=== PATIENT | female | born 1950 | race Two or more races ===

== ENCOUNTER → 2021-10-18 | Outpatient (CLI) | payer MEDICARE, OTHER ==
--- NOTE | 2021-10-18 17:15 | RAD ---
CT brain without contrast. HISTORY: Obtunded 48 hours, I was read a report from a previous outside CT. CT scan of brain was done without contrast. Sinuses are clear. 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 There is no shift of the midline . There is a small amount of intraventricular hemorrhage in the occipital horn of the frontal ventric le on the right side which could be residual from the old hemorrhage or a small focal new hemorrhage . There is a decreased density in the thalamus and posterior basal ganglia on the left consistent wit h an evolving CVA. Occipital and temporal horn of the lateral ventricle on the left are dilated. Ther e is slight density probably related to residual hemorrhage in the posterior parietal occipital regio n on the left. No new hemorrhage in that region is noted. There is diffuse decreased density in the w dustin matter of the posterior frontal parietal region on the left probably related to evolving insult from CVA and hemorrhage. Ventricular dilatation is probably related to developing encephalomalacia. IMPRESSION: 1. Decreased density left thalamus and basal ganglia consistent with evolving CVA. 2. Small amount of residual hemorrhage in the occipital horn lateral ventricle on the right possibly related to residual hemorrhage or possibly small new hemorrhage. 3. Residuals focus of increased density to the left of midline in the posterior parietal-occipital re gion probably evolving hemorrhage, no definite new hemorrhage in that location. 4. Dilated occipital and temporal horns of the lateral ventricle on the left probably related to deve loping encephalomalacia and atrophy. 5. There is no evidence of shift of the midline at this time. PQRS Compliance Statement: One or more of the following individualized dose reduction techniques were utilized for this examinat ion: 1. Automated exposure control 2. Adjustment of the mA and/or kV according to patient size 3. Use of iterative reconstruction technique Electronically signed by: Kentrell Ramsey MD (10/18/2021 5:12 PM) [id number]
== END ==
LOC: CT 16:20
PROVIDERS: ATTEND Internal Medicine
DX: I61.5 Nontraumatic intracerebral hemorrhage, intraventricular (principal); R58 Hemorrhage, not elsewhere classified
CPT/HCPCS: 70450